=== PATIENT | male | born 1955 | race Caucasian/White ===

== ENCOUNTER 2017-01-19 18:38 | Emergency (ER) | payer OTHER, BC ==
[~2017-01-19] VITALS: Ht 175.3 cm; Wt 82.0 kg
[2017-01-19 18:45] VITALS: BP 154/81; PULSE 69; TEMP 36.6; O2SAT 97; Ht 175.3 cm; Wt 82.0 kg
[2017-01-19] MEDS ORDERED: IBUPROFEN 600 MG TAB PO STA (19:13)
[2017-01-19] MEDS ORDERED: DUTA0.5C PO (19:18)
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
--- NOTE | 2017-01-19 19:59 | DIAGNOSTIC IMAGING REPORT ---
LEFT ELBOW 3 VIEWS CLINICAL HISTORY: Left elbow injury. FINDINGS: 3 views of the left elbow are obtained. No prior studies are available for comparison at the time of dictation. The skeletal structures are well mineralized. There is a nondistracted radial head fracture. No additional fracture is seen. There is elbow dislocation, with posterior translation of the ulna as compared to the humeral trochlea. The radioulnar articulation is not well assessed. Joint effusion is noted. Overlying soft tissue edema is observed. IMPRESSION: 1. Nondistracted radial head fracture. 2. Elbow dislocation as above. Electronically signed by: Arjun Cazares M.D. 01/19/2017 7:57 PM Dictated Date/Time: 01/19/2017 7:56 PM
--- NOTE | 2017-01-19 20:00 | DIAGNOSTIC IMAGING REPORT ---
LEFT SHOULDER 2 VIEWS CLINICAL HISTORY: Left shoulder injury. FINDINGS: 2 views of left shoulder are obtained. No prior studies are available for comparison at the time of dictation. The skeletal structures are well mineralized. No fracture or dislocation is seen in the left shoulder. The glenohumeral and acromioclavicular joints are maintained. The overlying soft tissues are within normal limits. The imaged left lung parenchyma appears clear. IMPRESSION: No fracture or dislocation is seen in the left shoulder. Electronically signed by: Arjun Cazares M.D. 01/19/2017 7:59 PM Dictated Date/Time: 01/19/2017 7:57 PM
[2017-01-19] MEDS ORDERED: OXYCODONE/ACETAMINOPHEN 5-325 TAB PO STA (20:26)
--- NOTE | 2017-01-19 20:40 | DIAGNOSTIC IMAGING REPORT ---
LEFT ELBOW 3 VIEWS CLINICAL HISTORY: Left elbow fracture/dislocation status post reduction. FINDINGS: 3 views of the left elbow are compared to study performed earlier the same day 01/19/2017. The skeletal structures are well mineralized. Again seen is a nondistracted radial head fracture. No additional fracture is identified. There has been successful reduction of the dislocated left elbow. There is been evangelical of near-anatomic alignment. A small joint effusion is noted. Overlying soft tissue edema is observed. IMPRESSION: 1. Successful reduction of the dislocated left elbow with evangelical of near-anatomic alignment. 2. Nondistracted radial head fracture. Electronically signed by: Arjun Cazaers M.D. 01/19/2017 8:38 PM Dictated Date/Time: 01/19/2017 8:36 PM
[2017-01-19] MEDS ORDERED: PERCOCET HOME PACK PO ONE (20:45)
[2017-01-19] MEDS ORDERED: OXYC-57 PO (21:25)
== END 2017-01-19 21:40 | disposition home or self-care (01) ==
LOC: C.EDB 18:40 → C.EDD 21:40
DX: S52.125A Nondisplaced fracture of head of left radius, initial encounter for closed fracture (principal); S53.125A Posterior dislocation of left ulnohumeral joint, initial encounter; V18.0XXA Pedal cycle driver injured in noncollision transport accident in nontraffic accident, initial encounter